=== PATIENT | female | born 1980 | race Caucasian/White ===

== ENCOUNTER 2016-07-21 00:36 | Emergency (ER) | payer MEDICAID ==
[~2016-07-21] VITALS: Ht 165.1 cm; Wt 108.9 kg
[2016-07-21 00:36] VITALS: BP_SYST 145
[2016-07-21 01:48] VITALS: BP_SYST 146
== END 2016-07-21 01:48 | disposition home or self-care (01) ==
LOC: SED 00:36
DX: S89.92XD Unspecified injury of left lower leg, subsequent encounter (principal); M54.30 Sciatica, unspecified side; Z48.00 Encounter for change or removal of nonsurgical wound dressing; X58.XXXD Exposure to other specified factors, subsequent encounter
CPT/HCPCS: 99283

== ENCOUNTER 2016-09-15 19:30 | Emergency (ER) | payer MEDICAID ==
[~2016-09-15] VITALS: Ht 165.1 cm; Wt 115.7 kg
[2016-09-15 19:35] VITALS: BP 149/97; PULSE 118; RESP 18; TEMP 98.8; O2SAT 100
--- NOTE | 2016-09-15 19:35 | NUR ---
Patient to ER bed 2 to gown for evaluation. Side rails up. Report given to Nicolasa ALDANA.
--- NOTE | 2016-09-15 19:50 | NUR ---
Patient alert and oriented x 4. Came in the ER with complaints of pain on her left ankle. Per patient, she was diagnosed with DVT a few months ago and for the last 2 days pain has gotten worse. No other complaints noted. No swelling or redness on the left ankle noted. Pain scale 8/10.
--- NOTE | 2016-09-15 20:05 | NUR ---
ER Dr. Knowles at bedside examining patient.
--- NOTE | 2016-09-15 20:11 | NUR ---
Patient does not want any medication at this time. Patient stated that she wants to make sure that her ankle is not broken or just wants to know that her ankle is ok.
[2016-09-15] MEDS ORDERED: fentaNYL CITRATE/PF 100 MCG/2 ML AMP IVP ONE (20:15)
[2016-09-15] MEDS ORDERED: NACL 0.9% 1,000 ML IV ONE (20:15)
[2016-09-15 20:20] LABS: BASOPHILS % (AUTO) 0.5 % (0.0-2.0); EOSINOPHILS # (AUTO) 0.2 K/uL (0.0-0.4); EOSINOPHILS % (AUTO) 1.9 % (0.0-4.0); HEMATOCRIT 36.6 % (36-48); HEMOGLOBIN 12.3 g/dL (12.0-16.0); LYMPHOCYTES # (AUTO) 2.8 K/uL (1.0-5.5); LYMPHOCYTES % (AUTO) 29.9 % (20.5-51.5); MEAN CORPUSCULAR HEMOGLOBIN 29 pg (27-31); MEAN CORPUSCULAR HGB CONC 34 % (32-36); MEAN CORPUSCULAR VOLUME 88 fL (79.0-98.0); MONOCYTES # (AUTO) 0.6 K/uL (0.0-1.0); MONOCYTES % (AUTO) 6.4 % (1.7-9.3); NEUTROPHILS # (AUTO) 5.7 K/uL (1.8-7.7); NEUTROPHILS % (AUTO) 61.3 % (40.0-70.0); PLATELET COUNT (AUTO) 347 K/uL (130-430); RED BLOOD CELL COUNT(AUTO) 4.18 MIL/uL (4.2-6.2); RED CELL DISTRIBUTION WIDTH 12.6 % (9.0-15.0); WHITE BLOOD COUNT (AUTO) 9.3 K/uL (4.8-10.8)
[2016-09-15 20:30] LABS: CREATININE 0.76 mg/dL (0.55-1.30); POTASSIUM 3.2 mmol/L (3.5-5.1)
[2016-09-15 20:35] LABS: ALBUMIN 3.8 g/dL (3.4-4.8); INR 1.2 (0.8-1.2); PROTHROMBIN TIME 12.6 SECS (9.5-12.5); TOTAL BILIRUBIN 0.1 mg/dL (0.0-1.0); TOTAL PROTEIN, SERUM 7.8 g/dL (6.4-8.3)
[2016-09-15] MEDS ORDERED: LORazepam 2 MG/ML VIAL (FOR ER USE) IVP ONE (20:45)
[2016-09-15] MEDS ORDERED: LORazepam 2 MG/ML VIAL (FOR ER USE) IM ONE (20:45)
[2016-09-15 21:11] VITALS: BP 138/79; PULSE 91; RESP 19; TEMP 98.6; O2SAT 99
--- NOTE | 2016-09-15 21:11 | NUR ---
Patient given written and verbal discharge instructions and verbalizes understanding. ER MD discussed with patient the results and treatment provided. Patient in stable condition. No acute distress or SOB noted upon discharge. ID arm band removed. No Rx given. Patient educated on pain management and to follow up with PMD. Pain Scale 2/10. Opportunity for questions provided and answered.
== END 2016-09-15 21:11 | disposition home or self-care (01) ==
LOC: SED 19:30
DX: G89.29 Other chronic pain (principal); M79.662 Pain in left lower leg; F41.9 Anxiety disorder, unspecified; Z86.718 Personal history of other venous thrombosis and embolism
CPT/HCPCS: 36415; 80053; 85025; 85379; 85610; 85730; 93971; 96372; 99285; J2060

== ENCOUNTER 2016-10-31 01:18 | Emergency (ER) | payer MEDICAID ==
[~2016-10-31] VITALS: Ht 165.1 cm; Wt 113.4 kg
[2016-10-31 01:20] VITALS: BP_SYST 129
[2016-10-31] MEDS ORDERED: KETOROLAC TROMETHAMINE 60 MG/2 ML VIAL IM ONE (03:15)
[2016-10-31 04:15] VITALS: BP_SYST 127
== END 2016-10-31 04:15 | disposition home or self-care (01) ==
LOC: SED 01:18
DX: G89.18 Other acute postprocedural pain (principal); F41.9 Anxiety disorder, unspecified; F32.9 Major depressive disorder, single episode, unspecified; Z86.718 Personal history of other venous thrombosis and embolism; Z98.890 Other specified postprocedural states
CPT/HCPCS: 81025; 96372; 99283; J1885

== ENCOUNTER 2016-11-13 00:48 | Emergency (ER) | payer MEDICAID ==
[~2016-11-13] VITALS: Ht 165.1 cm; Wt 104.3 kg
[2016-11-13 00:58] VITALS: BP_SYST 153
--- NOTE | 2016-11-13 01:10 | NUR ---
Patient triaged and placed in waiting room. VSS and patient appears in no acute distress at this time. Accompanied by family, awaiting available bed, and MD notified of need for MSE.
--- NOTE | 2016-11-13 01:32 | NUR ---
Patient left without being seen. Patient states she will come back to ER tomorrow.
== END 2016-11-13 01:13 | disposition left against medical advice (07) ==
LOC: SED 00:48
DX: T81.9XXA Unspecified complication of procedure, initial encounter (principal); Z53.21 Procedure and treatment not carried out due to patient leaving prior to being seen by health care provider

== ENCOUNTER 2016-12-28 00:05 | Emergency (ER) | payer MEDICAID ==
[~2016-12-28] VITALS: Ht 165.1 cm; Wt 113.4 kg
[2016-12-28 00:18] VITALS: BP_SYST 128
--- NOTE | 2016-12-28 00:55 | NUR ---
Patient to ER bed 8 to gown for evaluation. Side rails up. Report given to JOVAN AZAR.
--- NOTE | 2016-12-28 01:02 | NUR ---
Patient ambulated to bedside. Patient reports 1 week ago dropped a vacuum on left foot, was seen last at [facility] and was diagnosed with Cellulitis. Patient reports was prescribed Keflex and today report more swelling to dorsal aspect of left foot. Swelling noted to the area. Pain of 6/10. Pedal Pulses present bilaterally. No other complaints/injuries per patient or as noted. Will continue to monitor.
[2016-12-28] MEDS ORDERED: ceFAZolin SODIUM 1 GM VIAL IM ONE (02:15)
[2016-12-28] MEDS ORDERED: KETOROLAC TROMETHAMINE 60 MG/2 ML VIAL IM ONE (02:15)
--- NOTE | 2016-12-28 02:20 | NUR ---
Scanner Error. Patient's Name, , Allergies, and medication verified prior to administration of Ancef and Toradol.
[2016-12-28 02:31] VITALS: BP_SYST 128
--- NOTE | 2016-12-28 02:31 | NUR ---
Patient given written and verbal discharge instructions and verbalizes understanding. ER MD discussed with patient the results and treatment provided. Patient in stable condition. ID arm band removed. Rx of Clindamycin given. Patient educated on pain management and to follow up with PMD in 2-3 days. Pain Scale 0/10 Opportunity for questions provided and answered.
== END 2016-12-28 02:31 | disposition home or self-care (01) ==
LOC: SED 00:05
DX: L03.116 Cellulitis of left lower limb (principal); Z86.718 Personal history of other venous thrombosis and embolism; E07.9 Disorder of thyroid, unspecified
CPT/HCPCS: 73630; 96372; 99284; J0690; J1885

== ENCOUNTER 2017-01-09 22:56 | Emergency (ER) | payer MEDICAID ==
[~2017-01-09] VITALS: Ht 165.1 cm; Wt 113.4 kg
[2017-01-09 23:35] VITALS: BP_SYST 132
--- NOTE | 2017-01-09 23:45 | NUR ---
Patient to ER bed 4 to gown for evaluation. Side rails up.
--- NOTE | 2017-01-09 23:50 | NUR ---
PT IN RM 4 WITH C/O LEFT LOWER LEG PAIN , DR LOMBARDI AWARE.
--- NOTE | 2017-01-09 23:51 | NUR ---
ROBBIE Price at bedside examining patient.
[2017-01-10] MEDS ORDERED: KETOROLAC TROMETHAMINE 30 MG VIAL IM ONE
[2017-01-10] MEDS ORDERED: SULFAMETHOXAZOLE/TRIMETHOPR DS 1 TABLET PO ONE
[2017-01-10] MEDS ORDERED: CEPHALEXIN 500 MG CAPSULE PO ONE
--- NOTE | 2017-01-10 01:30 | NUR ---
US IN PROGRESS AT BEDSIDE, PT TOLERATING WELL.
[2017-01-10 01:49] VITALS: BP_SYST 128
--- NOTE | 2017-01-10 01:50 | NUR ---
Patient given written and verbal discharge instructions and verbalizes understanding. ER MD discussed with patient the results and treatment provided. Patient in stable condition. ID arm band removed. Rx of KEFLEX,BACTRIM given. Patient educated on pain management and to follow up with PMD. Pain Scale 2/10. Opportunity for questions provided and answered.
== END 2017-01-10 01:49 | disposition home or self-care (01) ==
LOC: SED 22:56
DX: L03.116 Cellulitis of left lower limb (principal); F41.9 Anxiety disorder, unspecified; F32.9 Major depressive disorder, single episode, unspecified; Z86.718 Personal history of other venous thrombosis and embolism
CPT/HCPCS: 93971; 96372; 99284; J1885

== ENCOUNTER 2017-01-12 23:33 | Inpatient (IN) | payer MEDICAID ==
[~2017-01-12] VITALS: Ht 165.1 cm; Wt 113.4 kg
[2017-01-12 23:58] VITALS: BP_SYST 145
[2017-01-13] MEDS ORDERED: VANCOMYCIN HCL 1,000 MG in NS 250 ML IV ONE (00:30)
[2017-01-13] MEDS ORDERED: PIPERACILLIN/TAZO 3.375 GM in NS 50 ML IV ONE (00:30)
[2017-01-13] MEDS ORDERED: VANCOMYCIN HCL 1000 MG/VIAL IV ONE (01:01)
[2017-01-13] MEDS ORDERED: PIPERACILLIN/TAZOBACTAM 3.375 GM/VIAL (ZOSYN) IV ONE (01:02)
[2017-01-13 01:38] LABS: BASOPHILS # (AUTO) 0.1 K/uL (0.0-0.2); BASOPHILS % (AUTO) 0.6 % (0.0-2.0); EOSINOPHILS # (AUTO) 0.4 K/uL (0.0-0.4); EOSINOPHILS % (AUTO) 3.9 % (0.0-4.0); HEMATOCRIT 34.8 % (36-48); HEMOGLOBIN 11.6 g/dL (12.0-16.0); LYMPHOCYTES # (AUTO) 3.2 K/uL (1.0-5.5); MEAN CORPUSCULAR HEMOGLOBIN 30 pg (27-31); MEAN CORPUSCULAR HGB CONC 33 % (32-36); MEAN CORPUSCULAR VOLUME 90 fL (79.0-98.0); MONOCYTES # (AUTO) 0.7 K/uL (0.0-1.0); MONOCYTES % (AUTO) 7.1 % (1.7-9.3); NEUTROPHILS # (AUTO) 5.5 K/uL (1.8-7.7); NEUTROPHILS % (AUTO) 56.4 % (40.0-70.0); PLATELET COUNT (AUTO) 328 K/uL (130-430); RED BLOOD CELL COUNT(AUTO) 3.88 MIL/uL (4.2-6.2); RED CELL DISTRIBUTION WIDTH 13.4 % (9.0-15.0); WHITE BLOOD COUNT (AUTO) 9.9 K/uL (4.8-10.8)
[2017-01-13 01:46] LABS: CREATININE 0.65 mg/dL (0.55-1.30); POTASSIUM 3.7 mmol/L (3.5-5.1)
[2017-01-13 01:50] LABS: ALBUMIN 3.3 g/dL (3.4-4.8); TOTAL BILIRUBIN 0.1 mg/dL (0.0-1.0)
[2017-01-13] MEDS ORDERED: NACL 0.9% 1,000 ML IV ONE (02:00)
[2017-01-13] MEDS ORDERED: ACETAMINOPHEN 325 MG TABLET PO PRN (03:15)
[2017-01-13] MEDS ORDERED: KCL 20 mEq in D5/0.45NS 1000mL 1,000 ML IV ONE (03:15)
[2017-01-13 03:58] VITALS: BP_SYST 106
[2017-01-13 04:12] VITALS: BP_SYST 106
[2017-01-13] MEDS ORDERED: FLU VACC QS 2017-18(36MOS+)/PF 0.5 ML/SYR SYRINGE I.M. PRN (04:15)
[2017-01-13 04:34] LABS: BILIRUBIN,URINE NEGATIVE (NEGATIVE); BLOOD, URINE 1+ (NEGATIVE); CLARITY/URINE CLEAR (CLEAR); COLOR,URINE YELLOW (YELLOW); GLUCOSE,URINE NEGATIVE (NEGATIVE); KETONES,URINE NEGATIVE (NEGATIVE); LEUKOCYTE ESTERASE ,URINE NEGATIVE (NEGATIVE); NITRITE, URINE NEGATIVE (NEGATIVE); PROTEIN URINE NEGATIVE (NEGATIVE); UROBILINOGEN,URINE 0.2 (0.2-1.0)
[2017-01-13 04:43] LABS: BACTERIA,URINE FEW /HPF (None Seen); RBC,URINE 0-3 /HPF (0-3); WBC,URINE 0-3 /HPF (0-3)
[2017-01-13] MEDS ORDERED: LEVO50TA77 PO (05:31)
[2017-01-13] MEDS ORDERED: SERT100T PO (05:31)
[2017-01-13] MEDS ORDERED: RIVA20TA PO (05:31)
[2017-01-13 08:00] VITALS: BP_SYST 107; BP_SYST 111
[2017-01-13] MEDS ORDERED: SERTRALINE HCL 50 MG TABLET PO SCH (09:00)
[2017-01-13 12:15] VITALS: BP_SYST 121
[2017-01-13] MEDS ORDERED: FAMOTIDINE 20 MG TABLET PO SCH (12:45)
[2017-01-13 16:36] VITALS: BP_SYST 124
[2017-01-13 17:50] VITALS: BP_SYST 130
[2017-01-14] MEDS ORDERED: LEVOTHYROXINE SODIUM 0.05 MG TABLET PO SCH (07:00)
[2017-01-14] MEDS ORDERED: FAMOTIDINE 20 MG TABLET PO SCH (09:00)
== END 2017-01-13 18:38 | disposition short-term general hospital (02) | DRG 383 ==
LOC: SED 23:33 → SMU 01-13 03:04
PROVIDERS: ADMIT Internal Medicine; ATTEND Internal Medicine
DX: L03.116 Cellulitis of left lower limb (principal); E44.0 Moderate protein-calorie malnutrition; E66.01 Morbid (severe) obesity due to excess calories; F32.9 Major depressive disorder, single episode, unspecified; E03.9 Hypothyroidism, unspecified; F41.9 Anxiety disorder, unspecified; R03.0 Elevated blood-pressure reading, without diagnosis of hypertension; Z86.718 Personal history of other venous thrombosis and embolism; Z68.41 Body mass index [BMI] 40.0-44.9, adult
CPT/HCPCS: 36415; 80053; 81000-TC; 83605; 85025; 87040-TC; 87086; 99285; J2543; J3370

== ENCOUNTER 2017-01-23 02:22 | Emergency (ER) | payer MEDICAID ==
[~2017-01-23] VITALS: Ht 165.1 cm; Wt 113.4 kg
[~2017-01-23 02:22] MED LIST: LEVO50TA77 PO; RIVA20TA PO; SERT100T PO
[2017-01-23 02:51] VITALS: BP 134/78; PULSE 107; RESP 14; TEMP 98.9; O2SAT 98
--- NOTE | 2017-01-23 03:19 | NUR ---
Patient to ER bed 5 to gown for evaluation. Side rails up. Report given to JOVAN HERNANDEZ.
--- NOTE | 2017-01-23 03:32 | NUR ---
ER at bedside examining patient.
--- NOTE | 2017-01-23 03:43 | NUR ---
Pt states she is having dull pain 8/10 in left lower leg. Non-pitting edema present left lower leg.
--- NOTE | 2017-01-23 05:00 | NUR ---
Patient resting quietly. No acute distress noted. Vital signs within normal range.
[2017-01-23] MEDS ORDERED: KETOROLAC TROMETHAMINE 60 MG/2 ML VIAL IM ONE (05:45)
[2017-01-23 07:05] VITALS: BP 137/70; PULSE 95; RESP 16; TEMP 99.3; O2SAT 100
--- NOTE | 2017-01-23 07:05 | NUR ---
Patient given written and verbal discharge instructions and verbalizes understanding. ER MD discussed with patient the results and treatment provided. Patient in stable condition. ID arm band removed. Patient educated on pain management and to follow up with PMD. Pain Scale 7/10. Opportunity for questions provided and answered.
== END 2017-01-23 07:05 | disposition home or self-care (01) ==
LOC: SED 02:22
DX: R60.0 Localized edema (principal); F41.9 Anxiety disorder, unspecified; F32.9 Major depressive disorder, single episode, unspecified; Z86.718 Personal history of other venous thrombosis and embolism; Z98.51 Tubal ligation status; Z90.89 Acquired absence of other organs
CPT/HCPCS: 73590; 73610; 73700; 81025; 93971; 96372; 99284; J1885

== ENCOUNTER 2017-01-23 18:24 | Emergency (ER) | payer MEDICAID ==
[~2017-01-23] VITALS: Ht 165.1 cm; Wt 113.4 kg
[2017-01-23 18:34] VITALS: BP 148/86; PULSE 102; RESP 20; TEMP 98.2; O2SAT 100
--- NOTE | 2017-01-23 18:39 | NUR ---
Pt placed to ER bed 05. Report given to JOVAN Lynne.
[2017-01-23] MEDS ORDERED: MORPHINE SULFATE 10 MG/ML VIAL IM ONE (18:45)
[2017-01-23] MEDS ORDERED: DIPHENHYDRAMINE INJ 50 MG/ML VIAL IM ONE (18:45)
--- NOTE | 2017-01-23 18:45 | NUR ---
Patient complains of left lower leg pain 09/25 today. Patient was seen earlier this morning. Patient states that she is here for some kind of support to her leg. Patient is requesting a splint be placed. Pedal Pulses present bilateral. No other complaints/injuries per patient or as noted. Will continue to monitor.
--- NOTE | 2017-01-23 18:57 | NUR ---
ROBBIE Deras at bedside examining patient.
--- NOTE | 2017-01-23 20:15 | NUR ---
Scanner Error. Patient given 10 mg Morphine Sulfate IM to the right ventral gluteal and Benadryl 25 mg IM to right ventral gluteal. Patient tolerated well. No other complaints/injuries per patient or as noted. Will continue to monitor.
[2017-01-23 20:36] VITALS: BP 132/82; PULSE 86; RESP 18; TEMP 98.2; O2SAT 100
--- NOTE | 2017-01-23 20:36 | NUR ---
Patient given written and verbal discharge instructions and verbalizes understanding. ER MD discussed with patient the results and treatment provided. Patient in stable condition. ID arm band removed. IV catheter removed intact and dressing applied, no active bleeding. Rx of Tramadol and Tylenol Extra Strength given. Patient educated on pain management and to follow up with PMD in 2-3 days. Pain Scale 0/10. Opportunity for questions provided and answered.
--- NOTE | 2017-01-23 20:45 | NUR ---
Note kodi in EDM - 01/23/17 at 2207 by [email or web address] Patient complains of left lower leg pain 09/25 today. Patient was seen earlier this morning. Patient states that she is here for some kind of support to her leg. Patient is requesting a splint be placed. Pedal Pulses present bilateral. No other complaints/injuries per patient or as noted. Will continue to monitor.
== END 2017-01-23 20:36 | disposition home or self-care (01) ==
LOC: SED 18:24
DX: M25.572 Pain in left ankle and joints of left foot (principal); R03.0 Elevated blood-pressure reading, without diagnosis of hypertension; F41.9 Anxiety disorder, unspecified; F32.9 Major depressive disorder, single episode, unspecified; Z98.890 Other specified postprocedural states; Z86.718 Personal history of other venous thrombosis and embolism; Z98.51 Tubal ligation status; Z90.89 Acquired absence of other organs
CPT/HCPCS: 29515; 96372; 99284; J1200; J2270

== ENCOUNTER 2017-02-20 23:11 | Emergency (ER) | payer MEDICAID ==
[~2017-02-20] VITALS: Ht 165.1 cm; Wt 113.4 kg
[2017-02-20 23:12] VITALS: BP_SYST 119
[2017-02-21] MEDS ORDERED: KETOROLAC TROMETHAMINE 60 MG/2 ML VIAL IM ONE
[2017-02-21 00:18] VITALS: BP_SYST 124
== END 2017-02-21 00:18 | disposition home or self-care (01) ==
LOC: SED 23:11
DX: G89.29 Other chronic pain (principal); M79.605 Pain in left leg; F41.9 Anxiety disorder, unspecified; Z98.51 Tubal ligation status; Z96.662 Presence of left artificial ankle joint; Z90.89 Acquired absence of other organs; Z86.718 Personal history of other venous thrombosis and embolism
CPT/HCPCS: 96372; 99283; J1885

== ENCOUNTER 2017-03-10 08:37 | Emergency (ER) | payer MEDICAID ==
[~2017-03-10] VITALS: Ht 165.1 cm; Wt 113.4 kg
[2017-03-10 08:43] VITALS: BP_SYST 109
[2017-03-10] MEDS: KETOROLAC TROMETHAMINE 60 MG/2 ML VIAL IM ONE (09:07)
[2017-03-10 10:01] VITALS: BP_SYST 110
== END 2017-03-10 10:01 | disposition home or self-care (01) ==
LOC: SED 08:37
DX: G90.522 Complex regional pain syndrome I of left lower limb (principal); F41.9 Anxiety disorder, unspecified; Z86.718 Personal history of other venous thrombosis and embolism; F32.9 Major depressive disorder, single episode, unspecified
CPT/HCPCS: 81025; 96372; 99283; J1885

== ENCOUNTER 2017-03-23 00:37 | Emergency (ER) | payer MEDICAID ==
[~2017-03-23] VITALS: Ht 165.1 cm; Wt 115.7 kg
[2017-03-23 00:45] VITALS: BP_SYST 137
[2017-03-23] MEDS ORDERED: NACL 0.9% 1,000 ML IV ONE (00:54)
[2017-03-23] MEDS ORDERED: ONDANSETRON HCL 4 MG/2 ML VIAL IVP ONE (01:00)
[2017-03-23] MEDS ORDERED: MORPHINE 4 MG/ML INJ. SYRINGE IVP ONE (01:15)
[2017-03-23 01:45] LABS: BILIRUBIN,URINE NEGATIVE (NEGATIVE); BLOOD, URINE 1+ (NEGATIVE); CLARITY/URINE CLEAR (CLEAR); COLOR,URINE YELLOW (YELLOW); GLUCOSE,URINE NEGATIVE (NEGATIVE); KETONES,URINE NEGATIVE (NEGATIVE); LEUKOCYTE ESTERASE ,URINE NEGATIVE (NEGATIVE); NITRITE, URINE NEGATIVE (NEGATIVE); PROTEIN URINE NEGATIVE (NEGATIVE); UROBILINOGEN,URINE 0.2 (0.2-1.0)
[2017-03-23 01:54] LABS: BACTERIA,URINE MODERATE /HPF (None Seen)
[2017-03-23 01:56] LABS: BASOPHILS # (AUTO) 0.1 K/uL (0.0-0.2); BASOPHILS % (AUTO) 0.6 % (0.0-2.0); EOSINOPHILS # (AUTO) 0.2 K/uL (0.0-0.4); EOSINOPHILS % (AUTO) 2.4 % (0.0-4.0); HEMATOCRIT 37.5 % (36-48); HEMOGLOBIN 12.5 g/dL (12.0-16.0); LYMPHOCYTES # (AUTO) 2.5 K/uL (1.0-5.5); LYMPHOCYTES % (AUTO) 25.5 % (20.5-51.5); MEAN CORPUSCULAR HEMOGLOBIN 30 pg (27-31); MEAN CORPUSCULAR HGB CONC 33 % (32-36); MEAN CORPUSCULAR VOLUME 89 fL (79.0-98.0); MONOCYTES # (AUTO) 0.7 K/uL (0.0-1.0); MONOCYTES % (AUTO) 6.8 % (1.7-9.3); NEUTROPHILS # (AUTO) 6.4 K/uL (1.8-7.7); NEUTROPHILS % (AUTO) 64.7 % (40.0-70.0); PLATELET COUNT (AUTO) 339 K/uL (130-430); RED BLOOD CELL COUNT(AUTO) 4.21 MIL/uL (4.2-6.2); RED CELL DISTRIBUTION WIDTH 13.1 % (9.0-15.0); WHITE BLOOD COUNT (AUTO) 9.9 K/uL (4.8-10.8)
[2017-03-23 02:08] LABS: CALCIUM 8.9 mg/dL (8.4-11.0); CREATININE 0.62 mg/dL (0.55-1.30); POTASSIUM 3.5 mmol/L (3.5-5.1)
[2017-03-23 02:12] LABS: ALBUMIN 3.7 g/dL (3.4-4.8); TOTAL BILIRUBIN 0.3 mg/dL (0.0-1.0)
[2017-03-23 03:03] VITALS: BP_SYST 124
== END 2017-03-23 03:03 | disposition home or self-care (01) ==
LOC: SED 00:37
DX: M79.1 Myalgia (principal); J00 Acute nasopharyngitis [common cold]; R53.81 Other malaise; F41.9 Anxiety disorder, unspecified; Z86.718 Personal history of other venous thrombosis and embolism; Z90.89 Acquired absence of other organs
CPT/HCPCS: 36415; 80053; 81000; 81025; 82150; 83690; 85025; 87086; 96361; 96374; 96375; 99284; J2270; J2405; J7030

== ENCOUNTER 2017-05-22 01:33 | Emergency (ER) | payer MEDICAID ==
[~2017-05-22] VITALS: Ht 165.1 cm; Wt 117.9 kg
[2017-05-22 02:02] VITALS: BP_SYST 138
--- NOTE | 2017-05-22 02:02 | NUR ---
PT AMBULATORY TO BED 5 FOR EVAL
--- NOTE | 2017-05-22 02:10 | NUR ---
PT CAME IN WITH A COMPLAINT OF GENERALIZED BODY WEAKNESS, HEADACHE, LEG PAIN, AND SOAR THROAT. NO OTHER COMPLAINT. NO FEVER NOTED. PT IS AAOX4 WITH VSS. SAFETY PRECAUTION OBSERVED. WILL CONTINUE TO MONITOR PT.
--- NOTE | 2017-05-22 02:20 | NUR ---
ER MD LOMBARDI AT BEDSIDE FOR MEDICAL EVALUATION.
[2017-05-22] MEDS ORDERED: CYCLOBENZAPRINE HCL 10 MG TABLET (FLEXERIL) PO ONE (02:30)
[2017-05-22] MEDS ORDERED: KETOROLAC TROMETHAMINE 30 MG VIAL IM ONE (02:30)
[2017-05-22 03:50] VITALS: BP_SYST 130
--- NOTE | 2017-05-22 03:50 | NUR ---
Patient given written and verbal discharge instructions and verbalizes understanding. ER MD LOMBARDI discussed with patient the results and treatment provided. Patient in stable condition. ID arm band removed. Rx of PREDNISONE given. Patient educated on pain management and to follow up with PMD. Pain Scale 0/10. Opportunity for questions provided and answered.
== END 2017-05-22 03:50 | disposition home or self-care (01) ==
LOC: SED 01:33
DX: J02.8 Acute pharyngitis due to other specified organisms (principal); B97.89 Other viral agents as the cause of diseases classified elsewhere; R51 Headache; M54.2 Cervicalgia; F41.9 Anxiety disorder, unspecified; Z86.718 Personal history of other venous thrombosis and embolism
CPT/HCPCS: 36415; 86403; 87081; 96372; 99284; J1885

== ENCOUNTER 2017-09-28 01:18 | Emergency (ER) | payer MEDICAID ==
[~2017-09-28] VITALS: Ht 165.1 cm; Wt 122.5 kg
[2017-09-28 01:29] VITALS: BP_SYST 132
[2017-09-28] MEDS ORDERED: MORPHINE 4 MG/ML INJ. SYRINGE IM ONE (02:00)
[2017-09-28] MEDS ORDERED: DIPHENHYDRAMINE INJ 50 MG/ML VIAL IM ONE (02:00)
[2017-09-28] MEDS ORDERED: MORPHINE SULFATE 10 MG/ML VIAL ONE (02:14)
[2017-09-28 02:23] VITALS: BP_SYST 132
== END 2017-09-28 02:23 | disposition home or self-care (01) ==
LOC: SED 01:18
DX: G89.29 Other chronic pain (principal); M79.604 Pain in right leg; F23 Brief psychotic disorder; F41.9 Anxiety disorder, unspecified; Z76.5 Malingerer [conscious simulation]; Z86.718 Personal history of other venous thrombosis and embolism
CPT/HCPCS: 96372; 99284; J1200; J2270

== ENCOUNTER 2017-10-02 01:34 | Emergency (ER) | payer MEDICAID ==
[~2017-10-02] VITALS: Ht 165.1 cm; Wt 127.0 kg
[2017-10-02 01:45] VITALS: BP_SYST 146
[2017-10-02 04:14] VITALS: BP_SYST 125
== END 2017-10-02 04:14 | disposition home or self-care (01) ==
LOC: SED 01:34
DX: G57.82 Other specified mononeuropathies of left lower limb (principal); F41.9 Anxiety disorder, unspecified; F32.9 Major depressive disorder, single episode, unspecified; Z86.718 Personal history of other venous thrombosis and embolism
CPT/HCPCS: 93971; 99284

== ENCOUNTER 2018-05-27 08:04 | Emergency (ER) | payer MEDICAID ==
[~2018-05-27] VITALS: Ht 165.1 cm; Wt 127.0 kg
[~2018-05-27 08:04] MED LIST changes: -LEVO50TA77 PO; +SYN50 PO
[2018-05-27 08:13] VITALS: BP_SYST 160
[2018-05-27] MEDS ORDERED: KETOROLAC TROMETHAMINE 60 MG/2 ML VIAL IM ONE (08:45)
[2018-05-27 10:46] VITALS: BP_SYST 160
== END 2018-05-27 10:46 | disposition home or self-care (01) ==
LOC: SED 08:04
DX: G89.29 Other chronic pain (principal); M79.605 Pain in left leg; F41.9 Anxiety disorder, unspecified; F32.9 Major depressive disorder, single episode, unspecified; R03.0 Elevated blood-pressure reading, without diagnosis of hypertension; Z86.718 Personal history of other venous thrombosis and embolism; Z79.899 Other long term (current) drug therapy
CPT/HCPCS: 73590; 73630; 96372; 99283; J1885

== ENCOUNTER 2018-10-08 02:39 | Emergency (ER) | payer MEDICAID ==
[~2018-10-08] VITALS: Ht 165.1 cm; Wt 122.5 kg
[2018-10-08 02:45] VITALS: BP_SYST 145
[2018-10-08] MEDS ORDERED: MORPHINE 2 MG/ML INJ. SYRINGE IM ONE (06:30)
[2018-10-08 06:53] VITALS: BP_SYST 140
== END 2018-10-08 06:48 | disposition home or self-care (01) ==
LOC: SED 02:39
DX: R22.42 Localized swelling, mass and lump, left lower limb (principal); F41.9 Anxiety disorder, unspecified; F32.9 Major depressive disorder, single episode, unspecified; Z86.718 Personal history of other venous thrombosis and embolism; Z79.899 Other long term (current) drug therapy
CPT/HCPCS: 93971; 99284; J7030; 96372

== ENCOUNTER 2018-10-30 19:45 | Emergency (ER) | payer MEDICAID ==
[~2018-10-30] VITALS: Ht 165.1 cm; Wt 127.0 kg
[2018-10-30 19:58] VITALS: BP_SYST 139
--- NOTE | 2018-10-30 20:03 | NUR ---
Pt placed to ER waiting room in stable condition.
--- NOTE | 2018-10-30 21:50 | NUR ---
Patient left without being seen. No further treatment done. ERMD aware
--- NOTE | 2018-10-30 21:50 | NUR ---
Called pt in x3, no answer
== END 2018-10-30 21:50 | disposition left against medical advice (07) ==
LOC: SED 19:45
DX: M25.572 Pain in left ankle and joints of left foot (principal); Z53.21 Procedure and treatment not carried out due to patient leaving prior to being seen by health care provider

== ENCOUNTER 2018-11-02 02:22 | Emergency (ER) | payer MEDICAID ==
[~2018-11-02] VITALS: Ht 165.1 cm; Wt 122.5 kg
[2018-11-02 02:30] VITALS: BP_SYST 160
--- NOTE | 2018-11-02 02:36 | NUR ---
Patient to ER bed 8 to gown for evaluation. Side rails up. Report given to Agustin ALDANA.
--- NOTE | 2018-11-02 03:15 | NUR ---
ER Dr. Aguirre at bedside examining patient.
[2018-11-02] MEDS ORDERED: ZOLPIDEM TARTRATE 5 MG TABLET PO ONE (03:30)
--- NOTE | 2018-11-02 04:10 | NUR ---
Pt given Ambiem PO to take at home per DR Aguirre.
[2018-11-02 04:15] VITALS: BP_SYST 152
--- NOTE | 2018-11-02 04:15 | NUR ---
Patient given written and verbal discharge instructions and verbalizes understanding. ER MD discussed with patient the results and treatment provided. Patient in stable condition. ID arm band removed. No Rx given. Patient educated on pain management and to follow up with PMD. Pain Scale 0. Opportunity for questions provided and answered. Medication side effect fact sheet provided.
== END 2018-11-02 04:15 | disposition home or self-care (01) ==
LOC: SED 02:22
DX: G89.29 Other chronic pain (principal); M79.605 Pain in left leg; I10 Essential (primary) hypertension; E03.9 Hypothyroidism, unspecified; F41.9 Anxiety disorder, unspecified; F32.9 Major depressive disorder, single episode, unspecified; Z86.718 Personal history of other venous thrombosis and embolism; Z79.899 Other long term (current) drug therapy
CPT/HCPCS: 99282

== ENCOUNTER 2018-12-03 02:50 | Inpatient (IN) | payer MEDICAID ==
[~2018-12-03] VITALS: Ht 165.1 cm; Wt 122.9 kg
[2018-12-03 03:20] VITALS: BP_SYST 136
--- NOTE | 2018-12-03 03:20 | NUR ---
Patient to ER bed 06 to gown for evaluation. Side rails up. Report given to JOVAN Mckenzie.
--- NOTE | 2018-12-03 04:04 | NUR ---
Dr. Boyd bedside for Pt eval
--- NOTE | 2018-12-03 04:15 | NUR ---
Pt BIB family to ED C/O twisted left ankle and now feels pain/heaviness shooting up to thigh 10/25. No other injuries and or complaints noted. VSS no s/s of acute distress. Resting on gurney with rails up
[2018-12-03] MEDS ORDERED: MORPHINE 4 MG/ML INJ. SYRINGE IM ONE (04:30)
[2018-12-03 04:33] LABS: BASOPHILS # (AUTO) 0.1 K/uL (0.0-0.2); BASOPHILS % (AUTO) 0.8 % (0.0-2.0); EOSINOPHILS # (AUTO) 0.2 K/uL (0.0-0.4); EOSINOPHILS % (AUTO) 2.4 % (0.0-4.0); HEMATOCRIT 36.8 % (36-48); HEMOGLOBIN 12.4 g/dL (12.0-16.0); LYMPHOCYTES # (AUTO) 2.9 K/uL (1.0-5.5); LYMPHOCYTES % (AUTO) 33.8 % (20.5-51.5); MEAN CORPUSCULAR HEMOGLOBIN 32 pg (27-31); MEAN CORPUSCULAR HGB CONC 34 % (32-36); MEAN CORPUSCULAR VOLUME 95 fL (79.0-98.0); MONOCYTES # (AUTO) 0.6 K/uL (0.0-1.0); MONOCYTES % (AUTO) 7.5 % (1.7-9.3); NEUTROPHILS # (AUTO) 4.7 K/uL (1.8-7.7); NEUTROPHILS % (AUTO) 55.5 % (40.0-70.0); PLATELET COUNT (AUTO) 278 K/uL (130-430); RED BLOOD CELL COUNT(AUTO) 3.89 MIL/uL (4.2-6.2); RED CELL DISTRIBUTION WIDTH 13.4 % (9.0-15.0); WHITE BLOOD COUNT (AUTO) 8.5 K/uL (4.8-10.8)
[2018-12-03 04:44] LABS: CALCIUM 8.6 mg/dL (8.4-11.0); CREATININE 0.9 mg/dL (0.55-1.30); POTASSIUM 3.6 mmol/L (3.5-5.1)
[2018-12-03 04:48] LABS: PROTHROMBIN TIME 10.3 SECS (9.5-12.5)
[2018-12-03 05:01] LABS: ALBUMIN 3.4 g/dL (3.4-4.8); FREE T4 (FREE THYROXINE) 0.7 ng/dL (0.6-1.6); THYROID STIMULATING HORMONE 2.75 uIu/mL (0.34-4.82); TOTAL BILIRUBIN 0.3 mg/dL (0.0-1.0)
--- NOTE | 2018-12-03 06:43 | NUR ---
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 WILL CALL BACK TO UPDATE ON TRANSFER/ADMISSION.
[2018-12-03] MEDS ORDERED: ENOXAPARIN SODIUM 120 MG/0.8 ML SYRINGE SUBCUT ONE (06:45)
--- NOTE | 2018-12-03 07:24 | NUR ---
RECIEVED REPORT FROM SANDER RN. ASSUMED CARE AT THIS TIME. PT AWAKE, ALERT, ORIENTED. CONCUR W/ PRIOR RN ASSESMENT. PT COINTINUES TO C/O LEG PAIN. DR. SINGH UPDATED. COMFORT MEASURES AND SUPPORTIVE CARE CONTINUED.
[2018-12-03] MEDS ORDERED: MORPHINE 4 MG/ML INJ. SYRINGE IVP ONE (07:30)
--- NOTE | 2018-12-03 07:37 | NUR ---
DR. GUTIÉRREZ [facility] DOC, PAGED BACK TO SPEAK WITH DR. SINGH REGARDING PT STATUS.
--- NOTE | 2018-12-03 07:45 | NUR ---
SPOKE TO WALLACE, INFORMATION SERVICES MANAGER AT [facility], AUTH TO AMBULANCE:[id number] WALLACE STATED ROYCE, ACCOUNTABLE IPA INFORMATION SERVICES MANAGER, WILL FIND PLACEMENT FOR PT SINCE [facility] HAS NO AVAILABLITY.
--- NOTE | 2018-12-03 08:03 | NUR ---
AUTH TO ADMIT: [id number] SPOKE TO WALLACE, PRIMARY COUNSELOR, GAVE AUTH TO ADMIT HERE. PAGING FOR ADMISSION.
--- NOTE | 2018-12-03 08:22 | NUR ---
Orders received from Dr. Anderson, entered by RN.
--- NOTE | 2018-12-03 08:23 | NUR ---
Patient will be admitted to care of Dr. Anderson. Admitted to Telemetry unit. Will go to room 117A. Belongings list completed. Summary report printed. Report will be given at bedside.
[2018-12-03] MEDS ORDERED: ACETAMINOPHEN 500 MG TABLET PO PRN (09:00)
[2018-12-03] MEDS ORDERED: ONDANSETRON HCL 4 MG/2 ML VIAL IVP PRN (09:00)
[2018-12-03] MEDS ORDERED: DOCUSATE SODIUM 100 MG/10 ML UDC PO PRN (09:00)
--- NOTE | 2018-12-03 09:20 | NUR ---
REPORT GIVEN. PT REMAINS STABLE. VSS. MONITORED TRANSPORT TO UNIT. CARE ENDORSED.
--- NOTE | 2018-12-03 09:28 | NUR ---
ADMISSION NOTE Received patient from ER via bita, received report from JERRI ALDANA. Patient admitted with diagnosis of INTRACTABLE ANKLE PAIN , POSSIBLE DVT. Patient oriented to hospital routine, call light, toileting and safety-patient verbalized understanding.
[2018-12-03 09:49] VITALS: BP_SYST 141
[2018-12-03 11:13] LABS: CHOLESTEROL 174 mg/dL (<200); LIPASE 73 U/L (73-393); PHOSPHORUS 3.1 mg/dL (2.7-4.5); TRIGLYCERIDES 95 mg/dL (30-150)
[2018-12-03 11:14] LABS: AMYLASE 57 U/L (0-100); HDL CHOLESTEROL 61 mg/dL (>55); LDL CHOLESTEROL 91 mg/dL (<100)
[2018-12-03] MEDS: NACL 0.9% 1,000 ML IV SCH (11:45)
[2018-12-03] MEDS: HYDROcodone/ACETAMIN 7.5-325 MG TAB PO PRN ×2 (12:20→17:35)
[2018-12-03 12:25] VITALS: BP_SYST 129
[2018-12-03] MEDS ORDERED: CYCLOBENZAPRINE HCL 10 MG TABLET (FLEXERIL) PO ONE (14:45)
[2018-12-03] MEDS ORDERED: NEU300 PO (14:56)
[2018-12-03] MEDS ORDERED: LEVO25TA2 PO (14:56)
[2018-12-03] MEDS ORDERED: DULO60CA41 PO (14:56)
[2018-12-03] MEDS ORDERED: LEVOTHYROXINE SODIUM 0.025 MG TABLET PO ONE (15:00)
[2018-12-03 16:01] VITALS: BP_SYST 117
[2018-12-03] MEDS: MORPHINE 2 MG/ML INJ. SYRINGE IVP PRN (17:41)
--- NOTE | 2018-12-03 17:59 | NUR ---
pt in bed shows no s/s of acute distress monitoring ongoing.
--- NOTE | 2018-12-03 18:10 | NUR ---
new iv started in right hand patent. no redness noted. 1700 insulin held for bs 180 mg/dl due to pt not eating no acute distress noted will cont to monitor. Addendum: 12/03/18 at 1816 by Eleven chief juvenile probation officer wrong pt
--- NOTE | 2018-12-03 19:49 | NUR ---
OPENING NOTES Pt is AAOx4, lying in bed. Pt on IVF with NS at 60ml/hr and infusing well on right AC G20. No complains of pain or discomfort at this time. No signs of acute distress or SOB noted. Encouraged to use call light when needed. Pt refused bed alarm and was educated on safety and benefits of alarm, pt verbalized understanding. Safety precautions in place with 2 side rails up, wheels locked, and bed in lowest level. Call light with pt. Will continue to monitor.
[2018-12-03 20:19] VITALS: BP_SYST 122
[2018-12-03] MEDS: CYCLOBENZAPRINE HCL 10 MG TABLET (FLEXERIL) PO SCH (20:22)
[2018-12-03] MEDS: ENOXAPARIN SODIUM 40 MG/0.4 ML SYRINGE SUBCUT SCH (20:24)
[2018-12-03] MEDS ORDERED: GABAPENTIN 300 MG CAPSULE PO SCH (21:00)
--- NOTE | 2018-12-03 22:00 | NUR ---
IV INSERTION Pt's old IV was infiltrated, new IV inserted by AN Jisha on right forearm G22, pt tolerated well. With good blood return and flushable with saline. Reconnected IVF and is infusing well. Will continue to monitor.
--- NOTE | 2018-12-04 00:05 | NUR ---
ROUNDS Pt is resting in bed with both eyes closed, with visible chest rise and fall with non-labored breathing noted. No complains of pain and no signs of acute distress noted. IVF infusing well. Safety precautions in place and call light with pt. Will continue to monitor.
[2018-12-04 01:27] VITALS: BP_SYST 134
[2018-12-04] MEDS: NACL 0.9% 1,000 ML IV SCH ×2 (01:30→12:25)
--- NOTE | 2018-12-04 02:35 | NUR ---
ROUNDS Pt is resting in bed with both eyes closed, with visible chest rise and fall with non-labored breathing noted. Pt is easily arousable. No signs of acute distress noted. IVF infusing well. No needs at this time. Safety precautions in place and call light with pt. Will continue to monitor.
--- NOTE | 2018-12-04 04:20 | NUR ---
ROUNDS Pt is resting in bed with both eyes closed, with visible chest rise and fall with non-labored breathing noted. No complains of pain and no signs of acute distress noted. Safety precautions in place and call light with pt. Will continue to monitor.
[2018-12-04] MEDS: LEVOTHYROXINE SODIUM 0.025 MG TABLET PO SCH (06:12)
[2018-12-04 06:16] VITALS: BP_SYST 126
[2018-12-04] MEDS: MORPHINE 2 MG/ML INJ. SYRINGE IVP PRN (06:18)
--- NOTE | 2018-12-04 07:03 | NUR ---
CLOSING NOTES Pt is resting in bed with both eyes closed, with visible chest rise and fall with non-labored breathing noted. No complains of pain or discomfort at this time. No signs of acute distress or SOB noted. IVF infusing well. All needs attended throughout the shift. Safety precautions in place with 3 side rails up, wheels locked, bed alarm on and in lowest level. Call light with pt. Will endorse to day shift nurse.
[2018-12-04 08:00] VITALS: BP_SYST 111
--- NOTE | 2018-12-04 08:00 | NUR ---
initial notes rec patient awake alert with ivf infusing well on the r forearm. no infiltration noted. resp easy and unlabored. no osb noted. bed to the lowest position and side rails up and locked.. call light with reached and know when to call for assistance. will continue to monitor
[2018-12-04] MEDS: CYCLOBENZAPRINE HCL 10 MG TABLET (FLEXERIL) PO SCH ×2 (09:27→20:34)
[2018-12-04] MEDS: DULoxetine HCL 30 MG CAPSULE.DR (CYMBALTA) PO SCH (09:27)
[2018-12-04] MEDS: ENOXAPARIN SODIUM 40 MG/0.4 ML SYRINGE SUBCUT SCH ×2 (09:28→20:36)
--- NOTE | 2018-12-04 10:00 | NUR ---
rounds seen by dr calderon and with orders. sleps at intervals. no sob noted.
--- NOTE | 2018-12-04 12:00 | NUR ---
rounds wake up patient to eat and with good appetite. no sob noted. resting comfortably.
--- NOTE | 2018-12-04 14:00 | NUR ---
rounds asleep when rounds made. call light within reached. no sob noted.
[2018-12-04] MEDS: HYDROcodone/ACETAMIN 7.5-325 MG TAB PO PRN ×2 (15:06→20:34)
[2018-12-04 16:00] VITALS: BP_SYST 95
--- NOTE | 2018-12-04 18:30 | NUR ---
closing notes resting comfortably at this time. no osb noted. bed to the lowest position and grocery checker ails up and locked.
--- NOTE | 2018-12-04 19:45 | NUR ---
OPENING NOTES Received pt and endorsement from day shift nurse. Pt is AAOx4, lying in bed. Pt on IVF with NS at 60ml/hr and infusing well on right forearm G22. No signs of acute distress or SOB noted. Encouraged to use call light when needed. Pt refused bed alarm and was educated on safety and benefits of alarm, pt verbalized understanding. Safety precautions in place with 2 side rails up, wheels locked, and bed in lowest level. Call light with pt. Will continue to monitor.
[2018-12-04 20:31] VITALS: BP_SYST 120
[2018-12-04] MEDS: GABAPENTIN 100 MG CAPSULE PO SCH (20:33)
--- NOTE | 2018-12-04 20:34 | NUR ---
PAIN MED Pt complained of lower back pain with a scale of 6/10. [place] 7.5-325mg 1tab PO given as ordered. Educated pt on safety and side effects like dizziness, pt verbalized understanding. No signs of acute distress noted. Safety precautions in place and call light with pt. Will continue to monitor.
[2018-12-05 01:00] VITALS: BP_SYST 118
[2018-12-05] MEDS: NACL 0.9% 1,000 ML IV SCH (04:34)
[2018-12-05 04:54] VITALS: BP_SYST 111
[2018-12-05] MEDS: MORPHINE 2 MG/ML INJ. SYRINGE IVP PRN ×2 (04:56→11:15)
--- NOTE | 2018-12-05 04:56 | NUR ---
PAIN MED Pt complained of lower back and left leg pain with a scale of 10/10. Vital signs taken and recorded. Morphine 2mg IVP given as ordered. Reeducated pt on safety and side effects like dizziness, pt verbalized understanding. No signs of acute distress noted. Safety precautions in place and call light with pt. Will continue to monitor.
[2018-12-05] MEDS: LEVOTHYROXINE SODIUM 0.025 MG TABLET PO SCH (06:10)
--- NOTE | 2018-12-05 06:35 | NUR ---
CLOSING NOTES Pt is resting in bed with both eyes closed, with visible chest rise and fall with non-labored breathing noted. No complains of pain or discomfort at this time. No signs of acute distress or SOB noted. IVF infusing well. All needs attended throughout the shift. Safety precautions in place with 3 side rails up, wheels locked and bed in lowest level. Call light with pt. Will endorse to day shift nurse.
--- NOTE | 2018-12-05 07:30 | NUR ---
opening note patient is resting in bed, A&Ox4, assessment completed, educated validation architect light system and plan of care, patient verbalized understanding, IV fluids running with no signs of infiltration, fall/safety precautions in place.
[2018-12-05 08:00] VITALS: BP_SYST 107
[2018-12-05] MEDS: DULoxetine HCL 30 MG CAPSULE.DR (CYMBALTA) PO SCH (08:10)
[2018-12-05] MEDS: CYCLOBENZAPRINE HCL 10 MG TABLET (FLEXERIL) PO SCH (08:10)
[2018-12-05] MEDS: GABAPENTIN 100 MG CAPSULE PO SCH (08:10)
[2018-12-05] MEDS: ENOXAPARIN SODIUM 40 MG/0.4 ML SYRINGE SUBCUT SCH (08:12)
--- NOTE | 2018-12-05 09:37 | NUR ---
rounds patient is resting in bed, eyes closed breathing easy and nonlabored, no needs at this time, IV fluids running, fall/safety precautions in place.
[2018-12-05 10:00] VITALS: BP_SYST 107
--- NOTE | 2018-12-05 11:15 | NUR ---
pain medication patient is resting in bed, complaining of left leg pain, educated on medication use and side effects, patient verbalized understanding, fall/safety precautions in place, patient told me that her gets out of work ay 1700 and he is the only one that come come pick her up.
== END 2018-12-05 14:05 | disposition home or self-care (01) | DRG 347 ==
LOC: SED 02:50 → STU 08:15 → SMU 12-04 22:31
PROVIDERS: ADMIT Family Medicine; ATTEND Family Medicine
DX: M51.26 Other intervertebral disc displacement, lumbar region (principal); E66.01 Morbid (severe) obesity due to excess calories; G62.9 Polyneuropathy, unspecified; E03.9 Hypothyroidism, unspecified; F41.9 Anxiety disorder, unspecified; F32.9 Major depressive disorder, single episode, unspecified; M81.0 Age-related osteoporosis without current pathological fracture; G89.4 Chronic pain syndrome; Z87.81 Personal history of (healed) traumatic fracture; Z98.51 Tubal ligation status; Z82.49 Family history of ischemic heart disease and other diseases of the circulatory system; Z68.42 Body mass index [BMI] 45.0-49.9, adult; Z79.899 Other long term (current) drug therapy; Z86.718 Personal history of other venous thrombosis and embolism; Z80.8 Family history of malignant neoplasm of other organs or systems; Z83.3 Family history of diabetes mellitus; Z56.0 Unemployment, unspecified
CPT/HCPCS: 36415; 71045; 72131; 73700-TC; 80053; 80061; 82150-TC; 82550-TC; 83036; 83690-TC; 83735-TC; 83880; 84100-TC; 84439; 84443-TC; 84484; 84703; 85025; 85610-TC; 85730-TC; 93005; 93971; 96365; 96372; 96374; 97116-GP; 97530-GP; 99285; G0378; J1650; J2270; J7030

== ENCOUNTER 2019-01-10 15:24 | Emergency (ER) | payer MEDICAID ==
[~2019-01-10] VITALS: Ht 165.1 cm; Wt 122.5 kg
[~2019-01-10 15:24] MED LIST changes: +DULO60CA41 PO; +LEVO25TA2 PO; +NEU300 PO; -RIVA20TA PO; -SERT100T PO; -SYN50 PO
[2019-01-10 15:25] VITALS: BP_SYST 141
--- NOTE | 2019-01-10 15:30 | NUR ---
Patient triaged and placed in waiting room. VSS and patient appears in no acute distress at this time. Accompanied by SELF, awaiting available bed, and MD notified of need for MSE.
[2019-01-10] MEDS ORDERED: KETOROLAC TROMETHAMINE 60 MG/2 ML VIAL IM ONE (17:00)
[2019-01-10] MEDS ORDERED: DEXAMETHASONE SOD PHOSPHATE 10 MG/ML VIAL IM ONE (17:00)
--- NOTE | 2019-01-10 17:12 | NUR ---
Pt arrives to the ER with c/o left foot/toe swelling. No other c/o at the moment.
[2019-01-10 17:34] VITALS: BP_SYST 141
--- NOTE | 2019-01-10 17:35 | NUR ---
Patient given written and verbal discharge instructions and verbalizes understanding. ER MD discussed with patient the results and treatment provided. Patient in stable condition. ID arm band removed. Rx of Voltaren and Prednisone 50mg given. Patient educated on pain management and to follow up with PMD. Pain Scale 0/10.Opportunity for questions provided and answered. Medication side effect fact sheet provided.
== END 2019-01-10 17:35 | disposition home or self-care (01) ==
LOC: SED 15:24
DX: G57.92 Unspecified mononeuropathy of left lower limb (principal); R60.0 Localized edema; R03.0 Elevated blood-pressure reading, without diagnosis of hypertension; F32.9 Major depressive disorder, single episode, unspecified; F41.9 Anxiety disorder, unspecified; Z79.899 Other long term (current) drug therapy
CPT/HCPCS: 93971; 96372; 99284; J1100; J1885

== ENCOUNTER 2019-01-13 23:31 | Emergency (ER) | payer MEDICAID ==
[~2019-01-13] VITALS: Ht 165.1 cm; Wt 122.5 kg
[2019-01-13 23:35] VITALS: BP_SYST 133
--- NOTE | 2019-01-13 23:45 | NUR ---
Patient to ER bed 07 to gown for evaluation. Side rails up.
--- NOTE | 2019-01-13 23:55 | NUR ---
patient arrived AOx4 from home with c/o 01/25 abd pain, N/V/D and vomiting with loose stool x 5 today. patient has normal active bowelsounds and is tender to palpation. patient states she has a history of opiate addiction. patient states she has been clean since 2017. patient refused pain medication. no other complaint or injury at this time.
--- NOTE | 2019-01-13 23:57 | NUR ---
patient refused test. notified.
[2019-01-14] MEDS ORDERED: ONDANSETRON HCL 4 MG/2 ML VIAL IVP ONE
[2019-01-14] MEDS ORDERED: NACL 0.9% 1,000 ML IV ONE
--- NOTE | 2019-01-14 | NUR ---
ER at bedside examining patient.
[2019-01-14 00:24] LABS: BASOPHILS # (AUTO) 0.1 K/uL (0.0-0.2); EOSINOPHILS # (AUTO) 0.2 K/uL (0.0-0.4); EOSINOPHILS % (AUTO) 2.5 % (0.0-4.0); HEMATOCRIT 40.4 % (36-48); HEMOGLOBIN 13.7 g/dL (12.0-16.0); LYMPHOCYTES # (AUTO) 1.3 K/uL (1.0-5.5); LYMPHOCYTES % (AUTO) 12.8 % (20.5-51.5); MEAN CORPUSCULAR HEMOGLOBIN 32 pg (27-31); MEAN CORPUSCULAR HGB CONC 34 % (32-36); MEAN CORPUSCULAR VOLUME 94 fL (79.0-98.0); MONOCYTES # (AUTO) 0.3 K/uL (0.0-1.0); MONOCYTES % (AUTO) 3.5 % (1.7-9.3); NEUTROPHILS # (AUTO) 7.9 K/uL (1.8-7.7); NEUTROPHILS % (AUTO) 80.2 % (40.0-70.0); PLATELET COUNT (AUTO) 301 K/uL (130-430); RED BLOOD CELL COUNT(AUTO) 4.29 MIL/uL (4.2-6.2); RED CELL DISTRIBUTION WIDTH 13.5 % (9.0-15.0); WHITE BLOOD COUNT (AUTO) 9.8 K/uL (4.8-10.8)
[2019-01-14 00:43] LABS: ALBUMIN 3.4 g/dL (3.4-4.8); CALCIUM 8.6 mg/dL (8.4-11.0); CREATININE 0.68 mg/dL (0.55-1.30); POTASSIUM 3.5 mmol/L (3.5-5.1); TOTAL BILIRUBIN 0.5 mg/dL (0.0-1.0)
--- NOTE | 2019-01-14 01:05 | NUR ---
Patient given written and verbal discharge instructions and verbalizes understanding. ER MD discussed with patient the results and treatment provided. Patient in stable condition. ID arm band removed. Rx of zofran given. Patient educated on pain management and to follow up with PMD. Pain Scale 0/10. Opportunity for questions provided and answered. Medication side effect fact sheet provided.
[2019-01-14 01:08] VITALS: BP_SYST 110
== END 2019-01-14 01:05 | disposition home or self-care (01) ==
LOC: SED 23:31
DX: A08.4 Viral intestinal infection, unspecified (principal); R07.89 Other chest pain; R11.2 Nausea with vomiting, unspecified; F41.9 Anxiety disorder, unspecified; F32.9 Major depressive disorder, single episode, unspecified; Z86.718 Personal history of other venous thrombosis and embolism; Z79.899 Other long term (current) drug therapy
CPT/HCPCS: 36415; 80053; 85025; 93005; 96361; 96374; 99284; J2405; J7030

== ENCOUNTER 2019-01-16 20:38 | Emergency (ER) | payer MEDICAID ==
[~2019-01-16] VITALS: Ht 165.1 cm; Wt 122.5 kg
[2019-01-16 20:59] VITALS: BP_SYST 134
--- NOTE | 2019-01-16 21:06 | NUR ---
Patient triaged and placed in waiting room. VSS and patient appears in no acute distress at this time. Accompanied by self, awaiting available bed, and MD notified of need for MSE.
[2019-01-16 21:41] LABS: BASOPHILS # (AUTO) 0.1 K/uL (0.0-0.2); BASOPHILS % (AUTO) 0.7 % (0.0-2.0); EOSINOPHILS # (AUTO) 0.3 K/uL (0.0-0.4); EOSINOPHILS % (AUTO) 2.7 % (0.0-4.0); HEMATOCRIT 39.5 % (36-48); HEMOGLOBIN 13.2 g/dL (12.0-16.0); LYMPHOCYTES # (AUTO) 2.8 K/uL (1.0-5.5); MEAN CORPUSCULAR HEMOGLOBIN 32 pg (27-31); MEAN CORPUSCULAR HGB CONC 34 % (32-36); MEAN CORPUSCULAR VOLUME 95 fL (79.0-98.0); MONOCYTES # (AUTO) 0.6 K/uL (0.0-1.0); MONOCYTES % (AUTO) 6.5 % (1.7-9.3); NEUTROPHILS # (AUTO) 5.6 K/uL (1.8-7.7); NEUTROPHILS % (AUTO) 60.1 % (40.0-70.0); PLATELET COUNT (AUTO) 309 K/uL (130-430); RED BLOOD CELL COUNT(AUTO) 4.15 MIL/uL (4.2-6.2); RED CELL DISTRIBUTION WIDTH 13.5 % (9.0-15.0); WHITE BLOOD COUNT (AUTO) 9.3 K/uL (4.8-10.8)
[2019-01-16 21:55] LABS: POTASSIUM 3.4 mmol/L (3.5-5.1)
[2019-01-16 21:56] LABS: CALCIUM 8.9 mg/dL (8.4-11.0); CREATININE 0.66 mg/dL (0.55-1.30)
[2019-01-16 22:02] LABS: ALBUMIN 3.2 g/dL (3.4-4.8); TOTAL BILIRUBIN 0.3 mg/dL (0.0-1.0)
--- NOTE | 2019-01-17 00:18 | NUR ---
Patient left without being seen. No further treatment provided. ER MD aware
--- NOTE | 2019-01-17 00:18 | NUR ---
Called pt 3x, no answer
== END 2019-01-17 00:18 | disposition left against medical advice (07) ==
LOC: SED 20:38
DX: M79.605 Pain in left leg (principal); Z53.21 Procedure and treatment not carried out due to patient leaving prior to being seen by health care provider
CPT/HCPCS: 36415; 80053; 83690-TC; 85025; 99281

== ENCOUNTER 2019-01-17 14:07 | Emergency (ER) | payer MEDICAID ==
[~2019-01-17] VITALS: Ht 165.1 cm; Wt 122.5 kg
[2019-01-17 14:07] VITALS: BP_SYST 127
[2019-01-17] MEDS ORDERED: KETAMINE 30 MG/3 ML SYRINGE 20 MG in NS 100 ML IV ONE (14:45)
[2019-01-17] MEDS ORDERED: fentaNYL CITRATE/PF 100 MCG/2 ML AMP IVP ONE (14:45)
[2019-01-17] MEDS ORDERED: KETAMINE 30 MG/3 ML SYRINGE ONE (15:26)
[2019-01-17 16:42] VITALS: BP_SYST 124
== END 2019-01-17 16:42 | disposition home or self-care (01) ==
LOC: SED 14:07
DX: G90.50 Complex regional pain syndrome I, unspecified (principal); R03.0 Elevated blood-pressure reading, without diagnosis of hypertension; F41.9 Anxiety disorder, unspecified; F32.9 Major depressive disorder, single episode, unspecified; Z90.89 Acquired absence of other organs; Z86.718 Personal history of other venous thrombosis and embolism; Z79.899 Other long term (current) drug therapy
CPT/HCPCS: 96374; 96375; 99283; J3010

== ENCOUNTER 2019-01-25 01:13 | Emergency (ER) | payer MEDICAID ==
[~2019-01-25] VITALS: Ht 165.1 cm; Wt 122.5 kg
[2019-01-25 01:18] VITALS: BP_SYST 152
--- NOTE | 2019-01-25 01:18 | NUR ---
Patient triaged and placed in waiting room. VSS and patient appears in no acute distress at this time. Accompanied by SELF, awaiting available bed, and MD notified of need for MSE.
--- NOTE | 2019-01-25 02:51 | NUR ---
Patient to ER bed 4 to gown for evaluation. Side rails up. Report given to ALTAF ALDANA.
--- NOTE | 2019-01-25 03:00 | NUR ---
Pt 38 year old female C/O of bilateral leg edema since 2017 worsening over the past few month. Pt is ambulatory and was able to walk in to the ER. Denies any other symptoms at this time, will continue to monitor.
--- NOTE | 2019-01-25 03:13 | NUR ---
ER Dr. Soriano at bedside examining patient.
[2019-01-25] MEDS ORDERED: MORPHINE 2 MG/ML INJ. SYRINGE IVP ONE (03:15)
[2019-01-25] MEDS ORDERED: ONDANSETRON HCL 4 MG/2 ML VIAL IVP ONE (03:15)
[2019-01-25 03:37] LABS: BASOPHILS % (AUTO) 0.4 % (0.0-2.0); EOSINOPHILS # (AUTO) 0.3 K/uL (0.0-0.4); EOSINOPHILS % (AUTO) 2.8 % (0.0-4.0); HEMATOCRIT 33.5 % (36-48); HEMOGLOBIN 11.4 g/dL (12.0-16.0); LYMPHOCYTES % (AUTO) 28.5 % (20.5-51.5); MEAN CORPUSCULAR HEMOGLOBIN 32 pg (27-31); MEAN CORPUSCULAR HGB CONC 34 % (32-36); MEAN CORPUSCULAR VOLUME 94 fL (79.0-98.0); MONOCYTES # (AUTO) 0.7 K/uL (0.0-1.0); MONOCYTES % (AUTO) 6.7 % (1.7-9.3); NEUTROPHILS # (AUTO) 6.4 K/uL (1.8-7.7); NEUTROPHILS % (AUTO) 61.6 % (40.0-70.0); PLATELET COUNT (AUTO) 263 K/uL (130-430); RED BLOOD CELL COUNT(AUTO) 3.56 MIL/uL (4.2-6.2); RED CELL DISTRIBUTION WIDTH 13.3 % (9.0-15.0); WHITE BLOOD COUNT (AUTO) 10.4 K/uL (4.8-10.8)
[2019-01-25 03:47] LABS: CALCIUM 8.7 mg/dL (8.4-11.0); CREATININE 0.76 mg/dL (0.55-1.30); POTASSIUM 3.4 mmol/L (3.5-5.1)
[2019-01-25 03:52] LABS: INR 1.1 (0.8-1.2); PROTHROMBIN TIME 10.6 SECS (9.5-12.5)
[2019-01-25 03:54] LABS: ALBUMIN 3.1 g/dL (3.4-4.8); TOTAL BILIRUBIN 0.3 mg/dL (0.0-1.0)
--- NOTE | 2019-01-25 03:59 | NUR ---
Radiology at bedside for ultrasound
--- NOTE | 2019-01-25 04:35 | NUR ---
Ultrasound has been completed
--- NOTE | 2019-01-25 04:37 | NUR ---
Pt has been medicated for pain and nausea. Tolerated medication well, will continue to monitor.
--- NOTE | 2019-01-25 04:45 | NUR ---
Dr. Soriano re-evaluating patient at bedside.
--- NOTE | 2019-01-25 05:00 | NUR ---
Pt is walking out of bed with steady gait. Approached the nurses station and advised us that her ride is waiting for her outside.
--- NOTE | 2019-01-25 05:05 | NUR ---
Patient given written and verbal discharge instructions and verbalizes understanding. ER MD discussed with patient the results and treatment provided. Patient in stable condition. ID arm band removed. IV catheter removed intact and dressing applied, no active bleeding. Patient educated on pain management and to follow up with PMD. Pain Scale 0. Opportunity for questions provided and answered. Medication side effect fact sheet provided.
[2019-01-25 05:07] VITALS: BP_SYST 152
== END 2019-01-25 05:07 | disposition home or self-care (01) ==
LOC: SED 01:13
DX: R60.0 Localized edema (principal); F41.9 Anxiety disorder, unspecified; F32.9 Major depressive disorder, single episode, unspecified; Z86.718 Personal history of other venous thrombosis and embolism; Z79.899 Other long term (current) drug therapy
CPT/HCPCS: 36415; 71045; 80053; 82550; 84484; 83880; 85025; 85610; 85730; 93005; 93970; 96374; 96375; 99284; J2270; J2405

== ENCOUNTER 2019-01-26 21:26 | Emergency (ER) | payer MEDICAID ==
[~2019-01-26] VITALS: Ht 165.1 cm; Wt 122.5 kg
[2019-01-26 21:33] VITALS: BP_SYST 125
--- NOTE | 2019-01-26 22:07 | NUR ---
Patient triaged and placed in waiting room. VSS and patient appears in no acute distress at this time. Accompanied by self , awaiting available bed, and MD notified of need for MSE.
--- NOTE | 2019-01-26 23:10 | NUR ---
Pt called in x 3, no answer. Patient left without being seen. No further treatment provided. ER MD aware
== END 2019-01-26 23:10 | disposition left against medical advice (07) ==
LOC: SED 21:26
DX: M79.605 Pain in left leg (principal); Z53.21 Procedure and treatment not carried out due to patient leaving prior to being seen by health care provider

== ENCOUNTER 2019-02-09 21:31 | Emergency (ER) | payer MEDICAID ==
[~2019-02-09] VITALS: Ht 165.1 cm; Wt 117.9 kg
[2019-02-09 21:36] VITALS: BP_SYST 128
--- NOTE | 2019-02-09 21:42 | NUR ---
Patient triaged and placed in waiting room. VSS and patient appears in no acute distress at this time. Accompanied by self, awaiting available bed, and MD notified of need for MSE.
--- NOTE | 2019-02-09 21:52 | NUR ---
Patient to ER bed 06 to gown for evaluation. Side rails up. Report given to Jonah ALDANA.
--- NOTE | 2019-02-09 22:00 | NUR ---
Dr. Malcolm bedside for Pt eval
--- NOTE | 2019-02-09 22:10 | NUR ---
Pt BIB Family to ED C/O chronic reflex sympathetic dystrophy in her left leg, who reports to the ER for pain control tonight. Pain is moderate, nonradiating. No alleviating or exacerbating factors. No other complaints and or injuries noted. VSS no s/s of acute distress. Resting on gurney rails up
[2019-02-09] MEDS ORDERED: KETOROLAC TROMETHAMINE 60 MG/2 ML VIAL IM ONE (22:15)
[2019-02-09] MEDS ORDERED: MORPHINE 4 MG/ML INJ. SYRINGE IM ONE (23:15)
--- NOTE | 2019-02-09 23:28 | NUR ---
VSS no s/s of acute distress.Resting on gurney rails up
[2019-02-10 01:15] VITALS: BP_SYST 128
--- NOTE | 2019-02-10 01:15 | NUR ---
Patient given written and verbal discharge instructions and verbalizes understanding. ER MD discussed with patient the results and treatment provided. Patient in stable condition. ID arm band removed. Patient educated on pain management and to follow up with PMD. Pain Scale 0/10 Opportunity for questions provided and answered.
== END 2019-02-10 01:15 | disposition home or self-care (01) ==
LOC: SED 21:31
DX: G90.522 Complex regional pain syndrome I of left lower limb (principal); F41.9 Anxiety disorder, unspecified; F32.9 Major depressive disorder, single episode, unspecified; Z79.899 Other long term (current) drug therapy
CPT/HCPCS: 96372; 99283; J1885; J2270

== ENCOUNTER 2019-02-19 01:19 | Emergency (ER) | payer MEDICAID ==
[~2019-02-19] VITALS: Ht 165.1 cm; Wt 122.5 kg
[2019-02-19 01:19] VITALS: BP_SYST 167
--- NOTE | 2019-02-19 01:34 | NUR ---
Pt placed to ER bed 05, to lucywmandi, report given to JOVAN Rice.
--- NOTE | 2019-02-19 01:35 | NUR ---
Pt brought self to ED. Pt alert and oriented x4. Pt states that she brought self to ED for new onset of rash to inside of R upper thight. Pt states rash started a few days ago, and got increasingly worse. Pt states she normally gets ingrown hairs in the area. Pt denies Chest pain, Nausea, vomiting, diarrhea, shortness of breath at this time. Pt denies any other medical complaint at this time that she is seeking assistance/evaluation for. Pt resting in bed comfortably, vss, will continue to monitor.
--- NOTE | 2019-02-19 01:36 | NUR ---
ER at bedside examining patient.
[2019-02-19 02:20] VITALS: BP_SYST 167
--- NOTE | 2019-02-19 02:20 | NUR ---
Patient given written and verbal discharge instructions and verbalizes understanding. ER MD discussed with patient the results and treatment provided. Patient in stable condition. ID arm band removed. No IV Catheter Rx of Keflex and Naprosyn given. Patient educated on pain management and to follow up with PMD. Pain Scale 0/10. Opportunity for questions provided and answered. Medication side effect fact sheet provided.
== END 2019-02-19 02:20 | disposition home or self-care (01) ==
LOC: SED 01:19
DX: L03.115 Cellulitis of right lower limb (principal); Z79.899 Other long term (current) drug therapy
CPT/HCPCS: 99283

== ENCOUNTER 2019-02-21 01:14 | Emergency (ER) | payer MEDICAID ==
[~2019-02-21] VITALS: Ht 165.1 cm; Wt 122.5 kg
[2019-02-21 02:10] VITALS: BP_SYST 123
--- NOTE | 2019-02-21 03:55 | NUR ---
Pt ambulatory to bed 8 for evaluation
--- NOTE | 2019-02-21 04:15 | NUR ---
Pt C/O of bilateral leg pain was seen for the same chief complaint on 02/19. Was discharged with rx for Keflex. Pt has hx of CRPS and suffers from chronic pain. Pt states she goes to the ED for pain control due to her hx of addiction, unable to obtain rx for pain management. Denies any other symptoms at this time.
--- NOTE | 2019-02-21 05:31 | NUR ---
ER at bedside examining patient.
[2019-02-21] MEDS: LEVOFLOXACIN 500 MG TABLET PO ONE (05:59)
--- NOTE | 2019-02-21 07:03 | NUR ---
Report received from JOVAN Reyes for continuation of care.
--- NOTE | 2019-02-21 07:03 | NUR ---
Patient was asleep in bed. Woke to voice. Patient stated she has not called for a ride yet.
--- NOTE | 2019-02-21 07:05 | NUR ---
Patient drove to ER, she states he son will be here in 5 minutes.
--- NOTE | 2019-02-21 07:14 | NUR ---
Patient refused toradol. Dr. Simmons made aware. Addendum: 02/21/19 at 0732 by [email or web address] Patient is demanding morphine.
[2019-02-21] MEDS: KETOROLAC TROMETHAMINE 60 MG/2 ML VIAL IM ONE (07:15)
--- NOTE | 2019-02-21 07:15 | NUR ---
Patient drove in to ER. Patient is upset that her ride has to be here prior to receiving morphine and discharge. She states that toradol does nothing for her and she is demanding her morphine. Her son has not shown up.
--- NOTE | 2019-02-21 07:20 | NUR ---
Dr. Simmons in to talk to patient. Patient got verbally agressive.
--- NOTE | 2019-02-21 07:22 | NUR ---
Patient refused morphine, Dr. Simmons at bedside and aware. Addendum: 02/21/19 at 0735 by [email or web address] ROBBIE Carrillo director at bedside.
--- NOTE | 2019-02-21 07:24 | NUR ---
Patient given written discharge instructions. ER discussed with patient the results and treatment provided. Patient in stable condition. ID arm band removed. Rx of stormy mendoza given. Patient refused verbal instructions and education. Opportunity for questions provided and answered. Medication side effect fact sheet provided. Addendum: 02/21/19 at 0735 by MARIANNE Patient's son still has not shown up at this time.
[2019-02-21] MEDS: MORPHINE 4 MG/ML INJ. SYRINGE IM ONE (07:31)
--- NOTE | 2019-02-21 08:59 | NUR ---
Maxine kodi in EDM - 02/21/19 at 0901 by MARIANNE Patient finished 4oz of apple juice and wanted more, she took a few sips of second juice container and was finished. Patient tolerated well.
--- NOTE | 2019-02-21 08:59 | NUR ---
Patient finished 4oz of apple juice and wanted more, she took a few sips of second juice container and was finished. Patient tolerated well.
== END 2019-02-21 07:24 | disposition home or self-care (01) ==
LOC: SED 01:14
DX: L03.115 Cellulitis of right lower limb (principal); F41.9 Anxiety disorder, unspecified; F32.9 Major depressive disorder, single episode, unspecified; Z79.899 Other long term (current) drug therapy
CPT/HCPCS: 93970; 99284; J1885

== ENCOUNTER 2019-02-22 22:42 | Emergency (ER) | payer MEDICAID ==
[~2019-02-22] VITALS: Ht 165.1 cm; Wt 122.5 kg
[2019-02-22 22:49] VITALS: BP_SYST 150
--- NOTE | 2019-02-22 23:40 | NUR ---
Placed in room 7. To gown for exam. Side rails up.
--- NOTE | 2019-02-23 | NUR ---
Pt C/O RT thigh cellulitis. Pt has been evaluated in the ED on 02/21 for the same chief complaint, was discharged with Keflex and Levaquin PO with no relief. Pt reports new onset of loss of sensation to the RT lower extremity. Denies any CP, SOB, N/V/D, fever or any other symptoms. Will continue to monitor.
--- NOTE | 2019-02-23 00:20 | NUR ---
ER Dr. Aguirre at bedside examining patient.
[2019-02-23] MEDS ORDERED: NACL 0.9% 1,000 ML IV ONE (00:26)
[2019-02-23] MEDS ORDERED: VANCOMYCIN HCL 1,000 MG in D5W 250 ML IV ONE (00:30)
[2019-02-23] MEDS ORDERED: VANCOMYCIN HCL 1000 MG/VIAL IV ONE (01:20)
[2019-02-23 01:27] LABS: CALCIUM 8.8 mg/dL (8.4-11.0); CREATININE 0.71 mg/dL (0.55-1.30); POTASSIUM 3.6 mmol/L (3.5-5.1)
[2019-02-23 01:32] LABS: ALBUMIN 3.3 g/dL (3.4-4.8); TOTAL BILIRUBIN 0.1 mg/dL (0.0-1.0)
[2019-02-23 01:36] LABS: BASOPHILS # (AUTO) 0.1 K/uL (0.0-0.2); BASOPHILS % (AUTO) 0.6 % (0.0-2.0); EOSINOPHILS # (AUTO) 0.3 K/uL (0.0-0.4); EOSINOPHILS % (AUTO) 2.8 % (0.0-4.0); HEMATOCRIT 34.3 % (36-48); HEMOGLOBIN 11.9 g/dL (12.0-16.0); LYMPHOCYTES # (AUTO) 2.9 K/uL (1.0-5.5); LYMPHOCYTES % (AUTO) 29.5 % (20.5-51.5); MEAN CORPUSCULAR HEMOGLOBIN 33 pg (27-31); MEAN CORPUSCULAR HGB CONC 35 % (32-36); MEAN CORPUSCULAR VOLUME 94 fL (79.0-98.0); MONOCYTES # (AUTO) 0.6 K/uL (0.0-1.0); MONOCYTES % (AUTO) 6.6 % (1.7-9.3); NEUTROPHILS # (AUTO) 5.9 K/uL (1.8-7.7); NEUTROPHILS % (AUTO) 60.5 % (40.0-70.0); PLATELET COUNT (AUTO) 297 K/uL (130-430); RED BLOOD CELL COUNT(AUTO) 3.64 MIL/uL (4.2-6.2); RED CELL DISTRIBUTION WIDTH 13.4 % (9.0-15.0); WHITE BLOOD COUNT (AUTO) 9.8 K/uL (4.8-10.8)
[2019-02-23] MEDS ORDERED: ARIP2TAB3 PO (01:47)
--- NOTE | 2019-02-23 01:47 | NUR ---
Medication reconciliation completed with information provided by pt at the bedside.. Any prior medication reconciliation on file was reviewed and corrected.
--- NOTE | 2019-02-23 02:10 | NUR ---
Pt is sleeping in bed, no acute distress at this time. Will continue to monitor.
[2019-02-23] MEDS ORDERED: PIPERACILLIN/TAZO 3.375 GM in NS 50 ML IV ONE (02:30)
[2019-02-23] MEDS ORDERED: PIPERACILLIN/TAZOBACTAM 3.375 GM/VIAL (ZOSYN) IV ONE ×2 (02:39)
--- NOTE | 2019-02-23 03:22 | NUR ---
Pt is resting quietly at this time, will continue to monitor.
--- NOTE | 2019-02-23 04:20 | NUR ---
Pt has no complaints of pain at this time, VSS. Will continue to monitor.
--- NOTE | 2019-02-23 04:55 | NUR ---
Patient to be transferred to [facility]. Is being transferred due to insurance. Receiving facility has accepting physician and available space. ER physician has signed transfer form. Patient or responsible green party has agreed to transfer and signed form. Patient belongings inventoried and will be sent with patient. Copy of nursing notes, lab reports, EKG, Physicians Orders and X-rays to be sent with patient. Report called to Agustin ALDANA at receiving facility. Receiving physician is Dr. Velez. [facility] ambulance service has been called for transfer. ETA is [id number].
[2019-02-23 05:25] VITALS: BP_SYST 103
--- NOTE | 2019-02-23 05:25 | NUR ---
Pt transferred in stable condition.
--- NOTE | 2019-02-25 17:34 | NUR ---
RECEIVED +WOUND CULTURE, DISCUSSED CASE WITH DR TAVARES AND NO FURTHER ACTIONS NEEDED.
== END 2019-02-23 05:25 | disposition short-term general hospital (02) ==
LOC: SED 22:42
DX: L03.115 Cellulitis of right lower limb (principal); I10 Essential (primary) hypertension
CPT/HCPCS: 36415; 80053; 83605; 85025; 87040; 87070; 87186; 96365; 96367; 99283; J2543; J3370; J7030

== ENCOUNTER 2019-06-25 17:59 | Emergency (ER) | payer MEDICAID ==
[~2019-06-25] VITALS: Ht 165.1 cm; Wt 129.3 kg
[~2019-06-25 17:59] MED LIST changes: +ARIP2TAB3 PO
[2019-06-25 18:08] VITALS: BP_SYST 140
[2019-06-25] MEDS ORDERED: MORPHINE SULFATE 10 MG/ML VIAL IM ONE (19:00)
[2019-06-25] MEDS ORDERED: ONDANSETRON 4 MG ODT TAB PO ONE (19:00)
[2019-06-25 19:31] LABS: BASOPHILS # (AUTO) 0.1 K/uL (0.0-0.2); BASOPHILS % (AUTO) 0.7 % (0.0-2.0); EOSINOPHILS # (AUTO) 0.2 K/uL (0.0-0.4); EOSINOPHILS % (AUTO) 3.1 % (0.0-4.0); HEMATOCRIT 35.5 % (36-48); HEMOGLOBIN 11.9 g/dL (12.0-16.0); LYMPHOCYTES # (AUTO) 2.2 K/uL (1.0-5.5); LYMPHOCYTES % (AUTO) 28.8 % (20.5-51.5); MEAN CORPUSCULAR HEMOGLOBIN 31 pg (27-31); MEAN CORPUSCULAR HGB CONC 33 % (32-36); MEAN CORPUSCULAR VOLUME 93 fL (79.0-98.0); MONOCYTES # (AUTO) 0.8 K/uL (0.0-1.0); MONOCYTES % (AUTO) 9.9 % (1.7-9.3); NEUTROPHILS # (AUTO) 4.5 K/uL (1.8-7.7); NEUTROPHILS % (AUTO) 57.5 % (40.0-70.0); PLATELET COUNT (AUTO) 271 K/uL (130-430); RED CELL DISTRIBUTION WIDTH 13.5 % (9.0-15.0); WHITE BLOOD COUNT (AUTO) 7.8 K/uL (4.8-10.8)
[2019-06-25 19:39] LABS: CALCIUM 8.5 mg/dL (8.4-11.0); CREATININE 0.74 mg/dL (0.55-1.30); POTASSIUM 3.8 mmol/L (3.5-5.1)
[2019-06-25 19:45] LABS: ALBUMIN 3.3 g/dL (3.4-4.8); TOTAL BILIRUBIN 0.3 mg/dL (0.0-1.0)
[2019-06-25 19:52] LABS: INR 1.1 (0.8-1.2); PROTHROMBIN TIME 10.8 SECS (9.5-12.5)
[2019-06-25 23:50] VITALS: BP_SYST 138
== END 2019-06-25 23:50 | disposition home or self-care (01) ==
LOC: SED 17:59
DX: R60.0 Localized edema (principal); M79.662 Pain in left lower leg; F32.9 Major depressive disorder, single episode, unspecified; F41.9 Anxiety disorder, unspecified; Z79.899 Other long term (current) drug therapy
CPT/HCPCS: 36415; 80053; 85025; 85379; 85610; 85730; 93922; 93970; 96372; 99285; J2270; Q0162

== ENCOUNTER 2023-09-20 01:20 | Emergency (ER) | payer SELFPAY ==
[~2023-09-20] VITALS: Ht 167.6 cm; Wt 131.5 kg
[~2023-09-20 01:20] MED LIST changes: -ARIP2TAB3 PO; +ARIP5TAB42 PO; -DULO60CA41 PO; +DULO60CA42 PO
[2023-09-20 01:26] VITALS: BP_SYST 148; PULSE 92; RESP 20; TEMP 98; O2SAT 97
[2023-09-20] MEDS ORDERED: CLIN-142 PO (01:29)
[2023-09-20] MEDS ORDERED: NAPR-1172 PO (01:29)
== END 2023-09-20 01:37 | disposition home or self-care (01) ==
LOC: SED 01:20
DX: S33.8XXA Sprain of other parts of lumbar spine and pelvis, initial encounter (principal); L03.114 Cellulitis of left upper limb; F41.9 Anxiety disorder, unspecified; F32.A Depression, unspecified; Z79.899 Other long term (current) drug therapy; Z79.2 Long term (current) use of antibiotics; Z98.890 Other specified postprocedural states; Z90.49 Acquired absence of other specified parts of digestive tract; Z86.718 Personal history of other venous thrombosis and embolism; W50.3XXA Accidental bite by another person, initial encounter; Y93.89 Activity, other specified; Y92.89 Other specified places as the place of occurrence of the external cause; Y99.8 Other external cause status
CPT/HCPCS: 99283

== ENCOUNTER 2023-10-03 20:01 | Emergency (ER) | payer SELFPAY ==
[~2023-10-03] VITALS: Ht 165.1 cm; Wt 131.5 kg
[~2023-10-03 20:01] MED LIST changes: +CLIN-142 PO; +NAPR-1172 PO
[2023-10-03 20:20] VITALS: BP_SYST 134; PULSE 90; RESP 20; TEMP 97.4; O2SAT 100
[2023-10-03 21:20] LABS: BILIRUBIN,URINE NEGATIVE (NEGATIVE); COLOR,URINE YELLOW (YELLOW); GLUCOSE,URINE NEGATIVE (NEGATIVE); KETONES,URINE TRACE (NEGATIVE); LEUKOCYTE ESTERASE ,URINE NEGATIVE (NEGATIVE); NITRITE, URINE POSITIVE (NEGATIVE); PROTEIN URINE NEGATIVE (NEGATIVE); UROBILINOGEN,URINE 0.2 (0.2-1.0)
[2023-10-03 21:27] LABS: BLOOD, URINE TRACE (NEGATIVE); CLARITY/URINE HAZY (CLEAR)
[2023-10-03 21:29] LABS: BACTERIA,URINE MANY /HPF (None Seen); MUCUS,URINE None Seen /LPF (None Seen); RBC,URINE NONE SEEN /HPF (0-3); WBC,URINE 0-3 /HPF (0-3)
[2023-10-03] MEDS: cefTRIAXone 1 GM in LIDOCAINE 1%, 20 ML MDV 2.1 ML IM ONE (22:26)
[2023-10-03] MEDS ORDERED: CIPR500T5 PO (23:39)
[2023-10-04] MEDS ORDERED: CLON1TAB12 PO (12:01)
== END 2023-10-03 23:42 | disposition home or self-care (01) ==
LOC: SED 20:01
DX: N39.0 Urinary tract infection, site not specified (principal); R10.9 Unspecified abdominal pain; F32.A Depression, unspecified; F41.9 Anxiety disorder, unspecified; Z90.49 Acquired absence of other specified parts of digestive tract; Z98.890 Other specified postprocedural states; Z79.899 Other long term (current) drug therapy; Z79.2 Long term (current) use of antibiotics
CPT/HCPCS: 99283; 81001; 87086; 96372; J0696; 81000; 81015; J2001

== ENCOUNTER 2023-10-04 09:46 | Emergency (ER) | payer SELFPAY ==
[~2023-10-04] VITALS: Ht 165.1 cm; Wt 131.5 kg
[~2023-10-04 09:46] MED LIST changes: +CIPR500T5 PO
[2023-10-04 10:05] VITALS: BP_SYST 125; PULSE 103; RESP 20; TEMP 97.9; O2SAT 100
[2023-10-04] MEDS ORDERED: KETAMINE HCL IN 0.9 % NACL 50 MG/5 ML SYRINGE IV ONE (10:30)
[2023-10-04] MEDS: KETOROLAC TROMETHAMINE 60 MG/2 ML VIAL IM ONE (10:52)
[2023-10-04] MEDS: KETAMINE HCL 500 MG/10 ML VIAL IM ONE (11:06)
[2023-10-04] MEDS ORDERED: CLON1TAB12 PO (12:01)
[2023-10-04 12:25] VITALS: BP_SYST 128; PULSE 97; RESP 17; TEMP 97.3; O2SAT 100
== END 2023-10-04 12:28 | disposition home or self-care (01) ==
LOC: SED 09:46
DX: M54.50 Low back pain, unspecified (principal); R06.02 Shortness of breath; F41.9 Anxiety disorder, unspecified; F32.A Depression, unspecified; Z79.899 Other long term (current) drug therapy; Z79.2 Long term (current) use of antibiotics
CPT/HCPCS: 99284; 96372; J1885

== ENCOUNTER 2023-10-10 06:20 | Emergency (ER) | payer MEDICAID ==
[~2023-10-10] VITALS: Ht 165.1 cm; Wt 131.5 kg
[~2023-10-10 06:20] MED LIST changes: +CLON1TAB12 PO
[2023-10-10 06:33] VITALS: BP_SYST 136; PULSE 98; RESP 20; TEMP 98; O2SAT 100
[2023-10-10 06:51] VITALS: BP_SYST 136; PULSE 98; RESP 20; TEMP 98; O2SAT 100
== END 2023-10-10 06:55 | disposition left against medical advice (07) ==
LOC: SED 06:20
DX: M54.50 Low back pain, unspecified (principal); F41.9 Anxiety disorder, unspecified; F32.A Depression, unspecified; Z79.899 Other long term (current) drug therapy; Z79.2 Long term (current) use of antibiotics
CPT/HCPCS: 99281

== ENCOUNTER 2023-10-11 09:10 | Emergency (ER) | payer MEDICAID ==
[~2023-10-11] VITALS: Ht 165.1 cm; Wt 131.5 kg
[2023-10-11 09:28] VITALS: BP_SYST 92; PULSE 109; RESP 17; TEMP 97; O2SAT 98
[2023-10-11] MEDS: KETOROLAC TROMETHAMINE 30 MG VIAL IM ONE (10:10)
[2023-10-11] MEDS: KETAMINE HCL IN 0.9 % NACL 50 MG/5 ML SYRINGE IVP ONE (10:15)
[2023-10-11 10:44] VITALS: BP_SYST 92; PULSE 109; RESP 17; TEMP 97; O2SAT 98
== END 2023-10-11 10:43 | disposition home or self-care (01) ==
LOC: SED 09:10
DX: M54.16 Radiculopathy, lumbar region (principal)
CPT/HCPCS: 99284; 96374; 96372; J1885

== ENCOUNTER 2023-12-03 08:32 | Emergency (ER) | payer MEDICAID ==
[~2023-12-03] VITALS: Ht 165.1 cm; Wt 131.5 kg
[2023-12-03 08:45] VITALS: BP_SYST 128; PULSE 98; RESP 18; TEMP 97.3; O2SAT 99
[2023-12-03 09:23] LABS: BASOPHILS % (AUTO) 0.5 % (0.0-2.0); EOSINOPHILS # (AUTO) 0.2 K/uL (0.0-0.4); EOSINOPHILS % (AUTO) 2.3 % (0.0-4.0); HEMATOCRIT 39.2 % (36-48); LYMPHOCYTES # (AUTO) 1.8 K/uL (1.0-5.5); LYMPHOCYTES % (AUTO) 20.1 % (20.5-51.5); MEAN CORPUSCULAR HEMOGLOBIN 32 pg (27-31); MEAN CORPUSCULAR HGB CONC 33 % (32-36); MEAN CORPUSCULAR VOLUME 97 fL (79.0-98.0); MONOCYTES # (AUTO) 0.6 K/uL (0.0-1.0); NEUTROPHILS # (AUTO) 6.3 K/uL (1.8-7.7); NEUTROPHILS % (AUTO) 70.1 % (40.0-70.0); PLATELET COUNT (AUTO) 296 K/uL (130-430); RED BLOOD CELL COUNT(AUTO) 4.06 MIL/uL (4.2-6.2); RED CELL DISTRIBUTION WIDTH 13.3 % (9.0-15.0); WHITE BLOOD COUNT (AUTO) 8.9 K/uL (4.8-10.8)
[2023-12-03] MEDS: HYDROcodone/ACETAMIN 10-325 MG TAB PO ONE (09:26)
[2023-12-03] MEDS: KETOROLAC TROMETHAMINE 60 MG/2 ML VIAL IM ONE (09:26)
[2023-12-03 09:28] LABS: ERYTHROCYTE SEDIMENTATION RATE 17 MM/HR (0-20)
[2023-12-03 09:40] LABS: INR 1.2 (0.8-1.2); PROTHROMBIN TIME 12.3 SECS (9.5-12.5)
[2023-12-03 09:48] LABS: CALCIUM 9.9 mg/dL (8.4-11.0); CREATININE 0.77 mg/dL (0.55-1.30); POTASSIUM 3.6 mmol/L (3.5-5.1)
[2023-12-03] MEDS ORDERED: IBUP-1969 PO (10:12)
== END 2023-12-03 09:34 | disposition left against medical advice (07) ==
LOC: SED 08:32
DX: S93.492A Sprain of other ligament of left ankle, initial encounter (principal); S09.8XXA Other specified injuries of head, initial encounter; F41.9 Anxiety disorder, unspecified; F32.A Depression, unspecified; Z79.899 Other long term (current) drug therapy; Z79.2 Long term (current) use of antibiotics; Y04.0XXA Assault by unarmed brawl or fight, initial encounter; Y93.89 Activity, other specified; Y92.89 Other specified places as the place of occurrence of the external cause; Y99.8 Other external cause status
CPT/HCPCS: 36415; 70450-TC; 80048; 85025; 85610; 85651; 85730; 99284